=== PATIENT | male | born 1980 | race Caucasian/White ===

== ENCOUNTER 2017-07-29 08:34 | Observation (INO) | payer BC ==
[~2017-07-29] VITALS: Ht 177.8 cm; Wt 111.4 kg
[2017-07-29 09:09] LABS: HEMOGLOBIN 14.5 G/DL (12.5-16.6); MCH 31.9 PG (29.0-34.0); MCHC 35.4 G/DL (30.0-36.0); MCV 90.1 FL (86-99); PLATELET COUNT 147 K/uL (156-360); RBC DIS.WIDTH-CV 12.8 % (11.8-14.6); RED BLOOD COUNT 4.55 M/uL (4.00-5.50); WHITE BLOOD COUNT 5.1 K/uL (4.1-10.2)
[2017-07-29 09:21] LABS: CHLORIDE 107 mEq/L (99-109); SODIUM 139 mEq/L (136-147)
[2017-07-29 09:22] LABS: GLUCOSE 156 mg/dL (70-99)
[2017-07-29 09:26] LABS: CREATININE 0.9 mg/dL (0.6-1.3); GFR ESTIMATE (CALCULATED) > 59 mL/min/ (58.99-99999)
[2017-07-29 09:27] LABS: UREA NITROGEN (BUN) 15 mg/dL (9-23)
[2017-07-29 09:29] LABS: TROP-I INTERPRETATION NEGATIVE; TROPONIN-I < 0.01 ng/mL (0.0-0.30)
[2017-07-29] MEDS ORDERED: ZOFRAN ODT4 MG PO (13:52)
[2017-07-29] MEDS ORDERED: ANTIVERT25 MG PO (13:52)
[2017-07-29 16:13] VITALS: BP 120/73
[2017-07-29 19:37] VITALS: BP 112/58
[2017-07-30 00:20] VITALS: BP 96/56
[2017-07-30 04:25] VITALS: BP 120/77
[2017-07-30 05:15] LABS: HEMATOCRIT 41.7 % (38.0-50.0); HEMOGLOBIN 13.9 G/DL (12.5-16.6); MCH 30.8 PG (29.0-34.0); MCHC 33.3 G/DL (30.0-36.0); MCV 92.3 FL (86-99); PLATELET COUNT 170 K/uL (156-360); RBC DIS.WIDTH-CV 12.9 % (11.8-14.6); RBC DIS.WIDTH-SD 43.8 % (39-53); RED BLOOD COUNT 4.52 M/uL (4.00-5.50); WHITE BLOOD COUNT 6.6 K/uL (4.1-10.2)
[2017-07-30 05:47] LABS: CHLORIDE 107 MEQ/L (99-109); CREATININE 1.1 MG/DL (0.6-1.3); GFR ESTIMATE (CALCULATED) > 59 mL/min/ (58.99-99999); POTASSIUM 4.1 MEQ/L (3.7-5.4); SODIUM 141 MEQ/L (136-147); UREA NITROGEN (BUN) 13 mg/dL (9-23)
[2017-07-30 05:48] LABS: GLUCOSE 104 mg/dL (70-99)
[2017-07-30 08:15] VITALS: BP 115/75
[2017-07-30] MEDS ORDERED: ANTIVERT25 MG PO (09:55)
[2017-07-30 11:58] VITALS: BP 140/75
== END 2017-07-30 13:51 | disposition home or self-care (01) ==
LOC: EDBD 08:34 → EME 08:34 → EDOF 14:27 → 4SOUTH 14:27 → ENRESERV 14:29 → 4SOUTH 16:01
PROVIDERS: Hospitalist; Nurse Practitioner Family
DX: H81.20 Vestibular neuronitis, unspecified ear (principal); Z88.6 Allergy status to analgesic agent
CPT/HCPCS: 70450; 70551; 80048; 82948; 83735; 84484; 85027; 93005; 93306; 93880; 95819; G0378; J1650; J2405; J7030